=== PATIENT | female | born 1980 | race Hispanic/Latino ===

== ENCOUNTER 2023-12-15 17:34 | Emergency (ER) | payer OTHER ==
[~2023-12-15] VITALS: Ht 167.6 cm; Wt 68.0 kg
[~2023-12-15 17:34] MED LIST: FAMOTIDINE20 MG PO; GABAPENTIN300 MG PO; ONDANSETRON ODT4 MG PO; THERAFLU SEVER1 EAC3 PO; TYLENOL325 MG PO; VITAMIN B-121000 MC2 PO
[2023-12-15 18:00] VITALS: PULSE 79; RESP 16; TEMP 98.4
[2023-12-15 19:49] VITALS: BP 108/65; PULSE 75; RESP 16; TEMP 98.2; O2SAT 98
== END 2023-12-15 19:55 | disposition home or self-care (01) ==
LOC: ER 17:37
DX: S22.41XD Multiple fractures of ribs, right side, subsequent encounter for fracture with routine healing (principal); S93.492D Sprain of other ligament of left ankle, subsequent encounter; M79.672 Pain in left foot; V89.2XXD Person injured in unspecified motor-vehicle accident, traffic, subsequent encounter; Y92.488 Other paved roadways as the place of occurrence of the external cause; Z98.84 Bariatric surgery status
CPT/HCPCS: 71045; 93005; 99282

== ENCOUNTER 2024-02-14 16:31 | Emergency (ER) | payer OTHER ==
[~2024-02-14] VITALS: Ht 167.6 cm; Wt 68.0 kg
[2024-02-14] MEDS: ONDANSETRON HCL INJ 2MG/ML 2ML 2 MG/ML VIAL IV STA (17:50)
[2024-02-14] MEDS: Morphine 4mg INJECTION 4 MG/ML INJ IV ONE (17:50)
[2024-02-14] MEDS: SODIUM CHLORIDE 0.9% 1000ML 1,000 ML IV SCH (17:50)
[2024-02-14] MEDS ORDERED: IOPAMIDOL 370 MG/ML 100 ML INFUS..BTL INJ ONE ×2 (17:55→19:59)
[2024-02-14] MEDS ORDERED: DIATRIZOATE MEGL/DIATRIZOA SOD 30 ML BTL PO ONE (18:12)
[2024-02-14] MEDS ORDERED: ONDANSETRON ODT4 MG PO (19:45)
[2024-02-14 19:58] VITALS: PULSE 71; RESP 18; TEMP 98.3
[2024-02-14 19:59] VITALS: BP 119/98; PULSE 71; RESP 18; TEMP 98.3; O2SAT 100
== END 2024-02-14 20:00 | disposition home or self-care (01) ==
LOC: FSED 16:55
DX: R10.13 Epigastric pain (principal); R11.2 Nausea with vomiting, unspecified; Z98.84 Bariatric surgery status
CPT/HCPCS: 74177; 80048; 80076; 81003; 81025; 99284; J2270; J2405; J7030; Q9963; Q9967

== ENCOUNTER 2024-04-01 14:40 | Emergency (ER) | payer OTHER ==
[~2024-04-01] VITALS: Ht 165.1 cm; Wt 67.7 kg
[2024-04-01 14:45] VITALS: TEMP 98.5
[2024-04-01] MEDS ORDERED: IOPAMIDOL 370 MG/ML 100 ML INFUS..BTL INJ ONE (15:42)
[2024-04-01] MEDS: FAMOTIDINE 20 MG/2 ML VIAL IV STA (15:55)
[2024-04-01] MEDS: ONDANSETRON HCL INJ 2MG/ML 2ML 2 MG/ML VIAL IV STA (15:55)
[2024-04-01] MEDS: SODIUM CHLORIDE 0.9% 1000ML 1,000 ML IV SCH (15:55)
[2024-04-01] MEDS: KETOROLAC TROMETHAMINE 30 MG/ML VIAL IV STA (15:56)
[2024-04-01] MEDS ORDERED: ONDANSETRON ODT4 MG PO (18:28)
[2024-04-01] MEDS ORDERED: LOPERAMIDE2 MG PO (18:29)
[2024-04-01 18:37] VITALS: PULSE 57; RESP 14
[2024-04-01 18:50] VITALS: BP 143/71; PULSE 60; RESP 19; TEMP 98.7; O2SAT 100
== END 2024-04-01 18:46 | disposition home or self-care (01) ==
LOC: FSED 14:56
DX: R11.2 Nausea with vomiting, unspecified (principal); K52.9 Noninfective gastroenteritis and colitis, unspecified; R07.89 Other chest pain; E86.0 Dehydration; R10.13 Epigastric pain; D64.9 Anemia, unspecified; Z98.84 Bariatric surgery status
CPT/HCPCS: 71046; 74177; 80048; 80076; 80307; 81003; 81025; 82553; 84484; 85025; 85379; 93005; 96374; 96375; 99283; J1885; J2405; J7030; Q9967